=== PATIENT | male | born 1995 | race African-American/Black ===

== ENCOUNTER 2016-12-28 11:58 | Emergency (ER) | payer MEDICAID ==
[~2016-12-28] VITALS: Ht 165.1 cm; Wt 48.0 kg
[~2016-12-28 11:58] MED LIST: DIVA-18 PO; IOHEXOL-300 100 ML BOTTLE ONE; LAM25 PO; QUET100T PO; SERT100T PO; SODIUM CHLORIDE 0.9% 10ML VIAL ONE
[2016-12-28] MEDS ORDERED: ONDANSETRON HCL 4MG/2ML VIAL IV STA (13:19)
[2016-12-28] MEDS ORDERED: SODIUM CHLORIDE 0.9% 1,000 ML IV ONE (13:19)
[2016-12-28] MEDS ORDERED: CEFAZOLIN 1000MG PREMIX 50 ML IV ONE (13:30)
[2016-12-28 14:30] LABS: INR 1.1; PROTHROMBIN TIME 11.2 sec
[2016-12-28 14:32] LABS: BASOPHILS % 0.7 % (0.0-2.0); EOSINOPHILS % 1.2 % (0.0-5.0); HEMATOCRIT. 44.4 % (42.0-52.0); LYMPHOCYTES % 25.4 % (20.0-50.0); MEAN CORPUSCULAR HEMOGLOBIN 31.3 pg (28.0-32.0); MEAN CORPUSCULAR HGB CONC 33.7 g/dL (31.0-37.0); MEAN CORPUSCULAR VOLUME 92.7 fL (80.0-94.0); MEAN PLATELET VOLUME 7.9 fl (7.4-10.4); MONOCYTES % 5.7 % (2.0-8.0); PLATELET 347 x1000/uL (130-400); RED BLOOD CELL COUNT 4.79 mill/uL (4.7-6.1); RED CELL DISTRIBUTION WIDTH 14.1 % (11.6-14.6); WHITE BLOOD COUNT 6.6 x1000/uL (4.5-11.0)
[2016-12-28 14:39] LABS: ALANINE AMINOTRANSFERASE 28 IU/L (13-61); ANION GAP 12; CALCIUM 9.7 mg/dL (8.5-10.1); CARBON DIOXIDE 32 mEq/L (21-32); CHLORIDE 98 mEq/L (98-107); ETHANOL BLOOD < 10 mg/dL; INDEX HEMOLYSI 1 (1-3); INDEX ICTERIC 1 (1-4); INDEX LIPEMIC 1 (1-3); UREA NITROGEN BLOOD 5 mg/dL (7-21); eGFR > 60 mL/min (>60)
[2016-12-28] MEDS ORDERED: KETOROLAC 60MG/2ML VIAL IM ONE (16:45)
[2016-12-28 18:45] VITALS: BP 100/60
== END 2016-12-28 19:27 | disposition home or self-care (01) ==
LOC: ER 12:29
DX: S31.119A Laceration without foreign body of abdominal wall, unspecified quadrant without penetration into peritoneal cavity, initial encounter (principal); Z88.6 Allergy status to analgesic agent; Z79.899 Other long term (current) drug therapy; Z88.8 Allergy status to other drugs, medicaments and biological substances; Z91.040 Latex allergy status; M79.7 Fibromyalgia; F12.10 Cannabis abuse, uncomplicated
CPT/HCPCS: 36415; 74177; 80053; 85025; 85610; 96365; 96372; 96375; 99285; A4216; G0482; J0690; J1885; J2405; J7030; Q9967

== ENCOUNTER 2017-04-01 22:21 | Emergency (ER) | payer MEDICAID ==
[~2017-04-01] VITALS: Ht 175.3 cm; Wt 66.0 kg
[~2017-04-01 22:21] MED LIST changes: -IOHEXOL-300 100 ML BOTTLE ONE; -SODIUM CHLORIDE 0.9% 10ML VIAL ONE
[2017-04-01 22:28] VITALS: BP 135/71
== END 2017-04-02 | disposition left against medical advice (07) ==
LOC: ER 22:37
DX: R56.9 Unspecified convulsions (principal); Z53.21 Procedure and treatment not carried out due to patient leaving prior to being seen by health care provider

== ENCOUNTER 2017-08-06 21:31 | Emergency (ER) | payer MEDICAID ==
[~2017-08-06] VITALS: Ht 172.7 cm; Wt 68.0 kg
[2017-08-06 22:42] LABS: BASOPHILS % 1.3 % (0.0-2.0); EOSINOPHILS % 3.4 % (0.0-5.0); HEMATOCRIT. 49.8 % (42.0-52.0); LYMPHOCYTES % 54.6 % (20.0-50.0); MEAN CORPUSCULAR HEMOGLOBIN 31.6 pg (28.0-32.0); MEAN CORPUSCULAR VOLUME 92.6 fL (80.0-94.0); MEAN PLATELET VOLUME 7.9 fl (7.4-10.4); MONOCYTES % 8.8 % (2.0-8.0); NEUTROPHILS % 31.9 % (40.0-76.0); PLATELET 320 x1000/uL (130-400); RED BLOOD CELL COUNT 5.38 mill/uL (4.7-6.1); RED CELL DISTRIBUTION WIDTH 14.9 % (11.6-14.6)
[2017-08-06 22:52] LABS: CARBON DIOXIDE 26 mEq/L (21-32); CHLORIDE 104 mEq/L (98-107); ETHANOL BLOOD < 10 mg/dL
[2017-08-07] MEDS ORDERED: SODIUM CHLORIDE 0.9% 1,000 ML IV ONE (00:15)
[2017-08-07 01:13] LABS: *AMPHETAMINES SCREEN URINE NEGATIVE (NEGATIVE); *BARBITURATES SCREEN URINE NEGATIVE (NEGATIVE); *BENZODIAZEPINES SCREEN URINE PRESUMTIVE POSITIVE (NEGATIVE); *COCAINE SCREEN URINE NEGATIVE (NEGATIVE); CANNABINOID URINE SCREEN NEGATIVE (NEGATIVE); METHADONE URINE SCREEN NEGATIVE (NEGATIVE); OPIATES URINE SCREEN NEGATIVE (NEGATIVE); PHENCYCLIDINE URINE SCREEN NEGATIVE (NEGATIVE)
[2017-08-07] MEDS ORDERED: PHENYTOIN SODIUM EXTENDED 100MG CAPSULE PO ONE (09:15)
[2017-08-07] MEDS ORDERED: DIVALPROEX SODIUM 250MG ER TABLET PO ONE (09:15)
[2017-08-07 13:37] VITALS: BP 113/65
== END 2017-08-07 13:43 ==
LOC: ER 21:39
DX: T42.6X2A Poisoning by other antiepileptic and sedative-hypnotic drugs, intentional self-harm, initial encounter (principal); R45.851 Suicidal ideations; Z88.6 Allergy status to analgesic agent; G40.909 Epilepsy, unspecified, not intractable, without status epilepticus; G35 Multiple sclerosis; F17.210 Nicotine dependence, cigarettes, uncomplicated; T43.592A Poisoning by other antipsychotics and neuroleptics, intentional self-harm, initial encounter; Y92.018 Other place in single-family (private) house as the place of occurrence of the external cause
CPT/HCPCS: 36415; 80048; 80165; 80185; 80305; 80307; 80329; 85025; 96360; 99285; G0482; J7030; Z7610

== ENCOUNTER 2017-11-24 19:43 | Inpatient (IN) | payer MEDICAID ==
[~2017-11-24] VITALS: Ht 165.1 cm; Wt 62.6 kg
[2017-11-24] MEDS ORDERED: SODIUM CHLORIDE 0.9% 1,000 ML IV ONE (19:59)
[2017-11-24 20:45] LABS: CHLORIDE 103 mEq/L (98-107)
[2017-11-24 20:47] LABS: BASOPHILS % 0.9 % (0.0-2.0); EOSINOPHILS % 1.4 % (0.0-5.0); HEMATOCRIT. 41.6 % (42.0-52.0); HEMOGLOBIN. 14.4 g/dL (14.0-18.0); LYMPHOCYTES % 32.8 % (20.0-50.0); MEAN CORPUSCULAR HEMOGLOBIN 32.4 pg (28.0-32.0); MEAN CORPUSCULAR VOLUME 93.9 fL (80.0-94.0); MEAN PLATELET VOLUME 8.4 fl (7.4-10.4); MONOCYTES % 7.2 % (2.0-8.0); NEUTROPHILS % 57.7 % (40.0-76.0); PLATELET 243 x1000/uL (130-400); RED BLOOD CELL COUNT 4.43 mill/uL (4.7-6.1); RED CELL DISTRIBUTION WIDTH 13.2 % (11.6-14.6)
[2017-11-24 20:50] LABS: AMMONIA 41 uMol/L (<32)
[2017-11-24 20:56] LABS: CREATINE KINASE 892 IU/L (39-308); ETHANOL BLOOD < 10 mg/dL
[2017-11-24] MEDS ORDERED: LACTULOSE 20G/30ML UDC PO ONE (21:00)
[2017-11-24 21:02] LABS: CARBAMAZEPINE < 0.5 ug/mL (4-12); PHENOBARBITAL < 2.1 ug/mL (15.0-40.0)
[2017-11-24] MEDS ORDERED: VALPROATE SODIUM 1,000 MG in DEXT 5% WATER 100 ML IV NR (21:45)
[2017-11-24] MEDS ORDERED: PHENYTOIN SODIUM 1,000 MG in SODIUM CHLORIDE 0.9% 100 ML IV NR (21:45)
[2017-11-24] MEDS ORDERED: LORAZEPAM 2MG/ML CPJ IV ONE (22:00)
[2017-11-25] MEDS ORDERED: LORAZEPAM 2MG/ML CPJ IV ONE (10:45)
[2017-11-25 11:21] LABS: *AMPHETAMINES SCREEN URINE NEGATIVE (NEGATIVE); *BARBITURATES SCREEN URINE NEGATIVE (NEGATIVE); *BENZODIAZEPINES SCREEN URINE PRESUMTIVE POSITIVE (NEGATIVE); *COCAINE SCREEN URINE NEGATIVE (NEGATIVE); CANNABINOID URINE SCREEN NEGATIVE (NEGATIVE); METHADONE URINE SCREEN NEGATIVE (NEGATIVE); OPIATES URINE SCREEN NEGATIVE (NEGATIVE); PHENCYCLIDINE URINE SCREEN NEGATIVE (NEGATIVE)
[2017-11-25] MEDS ORDERED: PHENYTOIN SODIUM 300 MG in SODIUM CHLORIDE 0.9% 50 ML IV SCH (11:45)
[2017-11-25] MEDS: VALPROIC ACID 250MG CAPSULE PO SCH ×2 (14:41→21:07)
[2017-11-25] MEDS: SODIUM CHLORIDE 0.9% 1,000 ML IV SCH ×3 (15:01→23:05)
[2017-11-25] MEDS ORDERED: LORAZEPAM 2MG/ML CPJ IV PRN (16:30)
[2017-11-25 16:46] VITALS: BP 109/57
[2017-11-25] MEDS ORDERED: QUETIAPINE FUMARATE 100MG TABLET PO SCH ×2 (17:00→21:00)
[2017-11-25 20:00] VITALS: BP_SYST 102; BP_SYST 106; BP_DIAS 42; BP_DIAS 70
[2017-11-25] MEDS ORDERED: PHENYTOIN SODIUM EXTENDED 100MG CAPSULE PO SCH (21:00)
[2017-11-25] MEDS ORDERED: SERTRALINE HCL 100MG TABLET PO SCH (21:00)
[2017-11-25] MEDS: HYDROCODONE/ACETAMINOPHEN 10/325MG TABLET PO PRN (21:12)
[2017-11-25] MEDS ORDERED: POTASSIUM CHLORIDE 20MEQ TABLET SR PO NR (21:30)
[2017-11-25] MEDS: LORAZEPAM 2MG/ML CPJ IV PRN (22:27)
[2017-11-26] VITALS: BP 103/43
[2017-11-26 03:17] VITALS: BP 108/61
[2017-11-26] MEDS: HYDROCODONE/ACETAMINOPHEN 10/325MG TABLET PO PRN ×3 (03:17→13:12)
[2017-11-26] MEDS: VALPROIC ACID 250MG CAPSULE PO SCH ×2 (05:08→13:11)
[2017-11-26] MEDS: LORAZEPAM 2MG/ML CPJ IV PRN ×2 (05:08→10:25)
[2017-11-26 06:42] LABS: BASOPHILS % 0.6 % (0.0-2.0); EOSINOPHILS % 5.1 % (0.0-5.0); HEMATOCRIT. 41.8 % (42.0-52.0); HEMOGLOBIN. 13.8 g/dL (14.0-18.0); LYMPHOCYTES % 65.3 % (20.0-50.0); MEAN CORPUSCULAR VOLUME 96.6 fL (80.0-94.0); MEAN PLATELET VOLUME 8.4 fl (7.4-10.4); MONOCYTES % 6.4 % (2.0-8.0); NEUTROPHILS % 22.6 % (40.0-76.0); PLATELET 243 x1000/uL (130-400); RED BLOOD CELL COUNT 4.32 mill/uL (4.7-6.1); RED CELL DISTRIBUTION WIDTH 12.9 % (11.6-14.6)
[2017-11-26 06:59] LABS: CHLORIDE 106 mEq/L (98-107)
[2017-11-26 08:00] VITALS: BP 116/67
[2017-11-26 12:00] VITALS: BP 106/52
[2017-11-26] MEDS ORDERED: PHEN100C4 PO (12:03)
[2017-11-26] MEDS ORDERED: VALP250C3 PO (12:03)
[2017-11-26] MEDS ORDERED: PHENYTOIN SODIUM 500 MG in SODIUM CHLORIDE 0.9% 50 ML IV SCH (12:30)
[2017-11-26 13:02] VITALS: BP 106/52
[2017-11-26 13:12] VITALS: BP 106/52
== END 2017-11-26 14:36 | disposition home or self-care (01) | DRG 53 ==
LOC: ER 19:43 → 5WST 11-25 11:02 → ENRESERV 11-25 15:32
PROVIDERS: ADMIT Internal Medicine; ATTEND Internal Medicine
DX: G40.909 Epilepsy, unspecified, not intractable, without status epilepticus (principal); M62.82 Rhabdomyolysis; E72.20 Disorder of urea cycle metabolism, unspecified; F20.9 Schizophrenia, unspecified; F31.9 Bipolar disorder, unspecified; M79.7 Fibromyalgia; Z88.5 Allergy status to narcotic agent; Z88.6 Allergy status to analgesic agent; Z91.040 Latex allergy status; Z91.14 Patient's other noncompliance with medication regimen
CPT/HCPCS: 36415; 70450; 70551; 71045; 80048; 80053; 80156; 80165; 80184; 80185; 80305; 80307; 80329; 82140; 82550; 82962; 83605; 85025; 93005; 96365; 96375; 99285; G0482; J1165; J2060; J3490; J7030; J7050; J7060

== ENCOUNTER 2018-02-15 14:55 | Emergency (ER) | payer MEDICAID, OTHER ==
[~2018-02-15] VITALS: Ht 170.2 cm; Wt 70.0 kg
[~2018-02-15 14:55] MED LIST changes: -DIVA-18 PO; +PHEN100C4 PO; +VALP250C3 PO
[2018-02-15] MEDS ORDERED: LIDOCAINE HCL 1% 20ML VIAL (Pyxis) INJ MC ONE (20:00)
[2018-02-15] MEDS ORDERED: BACITRACIN ZINC OINT UDPKT TOP ONE (20:00)
[2018-02-15] MEDS ORDERED: HYDROCODONE/ACETAMINOPHEN 5/325MG TABLET PO ONE (20:00)
[2018-02-15] MEDS ORDERED: TETANUS, DIPHTHERIA, PERTUSSIS VAC/PF 0.5ML (>7YR OLD) IM ONE (20:00)
[2018-02-15 23:31] VITALS: BP 122/91
== END 2018-02-16 00:11 | disposition home or self-care (01) ==
LOC: ER 14:55
DX: S01.511A Laceration without foreign body of lip, initial encounter (principal); J45.909 Unspecified asthma, uncomplicated; R56.9 Unspecified convulsions; Y04.0XXA Assault by unarmed brawl or fight, initial encounter; Y93.89 Activity, other specified; Y92.89 Other specified places as the place of occurrence of the external cause; Y99.8 Other external cause status; Z88.6 Allergy status to analgesic agent; Z91.040 Latex allergy status
CPT/HCPCS: 12011; 70486; 90471; 90715; 99284; J3490; X7700; Z7610